=== PATIENT | female | born 1940 | race African-American/Black ===

== ENCOUNTER 2016-10-08 04:56 | Emergency (ER) | payer MEDICARE ==
[2016-10-08 05:47] LABS: BASOPHIL 1.1 % (0-2); EOSINOPHIL 6.8 % (0-7); HCT 44.5 % (37.0-47.0); HGB 14.8 g/dl (12.5-16.0); LYMPHOCYTE 27.4 % (15-48); MCH 30.9 pg (25.0-31.0); MCHC 33.3 g/dL (32.0-36.0); MCV 92.9 fL (78.0-100.0); MONOCYTE 6.2 % (0-12); MPV 9.9 fL (6.0-9.5); NEUTROPHIL 58.5 % (41-80); PLT 363 K/uL (150-400); RBC 4.79 M/uL (4.20-5.40); RDW 14.7 % (11.5-14.0); WBC 5.3 K/uL (4.0-10.5)
[2016-10-08 06:04] LABS: CREATININE 0.7 mg/dL (0.5-1.0); POTASSIUM 3.6 mmol/L (3.5-5.1); URIC ACID 4.6 mg/dL (2.4-5.7)
== END 2016-10-08 08:08 | disposition home or self-care (01) ==
LOC: FER 04:56
PROVIDERS: Emergency Medicine Emergency Medical Services
DX: M17.12 Unilateral primary osteoarthritis, left knee (principal); I20.9 Angina pectoris, unspecified; M81.0 Age-related osteoporosis without current pathological fracture; F17.210 Nicotine dependence, cigarettes, uncomplicated; Z79.82 Long term (current) use of aspirin; Z79.899 Other long term (current) drug therapy
CPT/HCPCS: 36415; 73564; 80048; 84550; 85025; 86140; 93971; J1885

== ENCOUNTER 2021-12-04 10:08 | Emergency (ER) | payer MEDICARE ==
[2021-12-04 11:28] LABS: BILIRUBIN NEGATIVE (NEGATIVE); BLOOD 1+ Ery/uL (NEGATIVE); CLARITY CLEAR (CLEAR); COLOR YELLOW (YELLOW); GLUCOSE (U) NORMAL (NORMAL); LEUKOCYTES NEGATIVE Leu/uL (NEGATIVE); NITRITE NEGATIVE (NEGATIVE); PROTEIN NEGATIVE (NEGATIVE); SPECIFIC GRAVITY <=1.005 (1.001-1.030); UROBILINOGEN 0.2 mg/dL (0.2-1.0); pH 6.5 (5.0-9.0)
[2021-12-04 11:29] LABS: BASOPHIL 0.8 % (0-2); EOSINOPHIL 1.4 % (0-7); HCT 45.6 % (37.0-47.0); LYMPHOCYTE 14.7 % (15-48); MCH 31.4 pg (25.0-31.0); MCHC 32.9 g/dL (32.0-36.0); MCV 95.6 fL (78.0-100.0); MONOCYTE 6.3 % (0-12); MPV 9.2 fL (6.0-9.5); NEUTROPHIL 76.3 % (41-80); NRBC 0; PLT 349 K/uL (150-400); RBC 4.77 M/uL (4.20-5.40); RDW 13.5 % (11.5-14.0); WBC 7.9 K/uL (4.0-10.5)
[2021-12-04 11:42] LABS: BACTERIA 1+; URINARY RBC RARE
[2021-12-04 11:48] LABS: BILIRUBIN - TOTAL 0.4 mg/dL (0.2-1.0); BUN/CREAT RATIO (CALC) 9.6 RATIO; CREATININE 0.83 mg/dL (0.51-0.95); GLOBULIN (CALCULATION) 3.1 g/dL; MAGNESIUM 2.1 mg/dL (1.8-2.4); POTASSIUM 4.3 mmol/L (3.5-5.1); TOTAL PROTEIN 7.1 g/dL (6.4-8.2)
[2021-12-04] MEDS ORDERED: ANTIVERT12.5 MG PO (12:32)
== END 2021-12-04 13:01 | disposition home or self-care (01) ==
LOC: FER 10:08
PROVIDERS: Emergency Medicine
DX: H81.11 Benign paroxysmal vertigo, right ear (principal); I10 Essential (primary) hypertension; F17.200 Nicotine dependence, unspecified, uncomplicated; Z79.899 Other long term (current) drug therapy
CPT/HCPCS: 36415; 70450; 71045; 80053; 81001; 83735; 85025; 93005

== ENCOUNTER 2022-04-10 13:39 | Emergency (ER) | payer MEDICARE ==
[~2022-04-10 13:39] MED LIST: ANTIVERT12.5 MG PO
[2022-04-10 14:52] LABS: BILIRUBIN NEGATIVE (NEGATIVE); BLOOD TRACE-INTACT Ery/uL (NEGATIVE); CLARITY CLEAR (CLEAR); COLOR YELLOW (YELLOW); GLUCOSE (U) NORMAL (NORMAL); LEUKOCYTES NEGATIVE Leu/uL (NEGATIVE); NITRITE NEGATIVE (NEGATIVE); PROTEIN NEGATIVE (NEGATIVE); UROBILINOGEN 0.2 mg/dL (0.2-1.0); pH 6.5 (5.0-9.0)
[2022-04-10 15:07] LABS: BASOPHIL 1.2 % (0-2); EOSINOPHIL 4.6 % (0-7); HCT 44.1 % (37.0-47.0); HGB 14.3 g/dl (12.5-16.0); LYMPHOCYTE 20.2 % (15-48); MCH 30.7 pg (25.0-31.0); MCHC 32.4 g/dL (32.0-36.0); MCV 94.6 fL (78.0-100.0); MONOCYTE 5.8 % (0-12); MPV 9.5 fL (6.0-9.5); NEUTROPHIL 67.9 % (41-80); NRBC 0; PLT 340 K/uL (150-400); RBC 4.66 M/uL (4.20-5.40); RDW 13.9 % (11.5-14.0); WBC 6.6 K/uL (4.0-10.5)
[2022-04-10 15:19] LABS: AMORPHOUS PHOSPHATE CRYSTALS MODERATE; BACTERIA 2+; URINARY RBC RARE
[2022-04-10 15:44] LABS: ALBUMIN 3.9 g/dL (3.4-5.0); BILIRUBIN - TOTAL 0.3 mg/dL (0.2-1.0); BUN/CREAT RATIO (CALC) 8.6 RATIO; CREATININE 0.81 mg/dL (0.51-0.95); GLOBULIN (CALCULATION) 3.3 g/dL; MAGNESIUM 2.1 mg/dL (1.8-2.4); POTASSIUM 4.1 mmol/L (3.5-5.1); TOTAL PROTEIN 7.2 g/dL (6.4-8.2)
== END 2022-04-10 16:43 | disposition home or self-care (01) ==
LOC: FER 13:39
PROVIDERS: Emergency Medicine
DX: R42 Dizziness and giddiness (principal); I10 Essential (primary) hypertension; F17.200 Nicotine dependence, unspecified, uncomplicated
CPT/HCPCS: 36415; 70450; 71045; 80053; 81001; 83735; 85025; 87088; 93005